=== PATIENT | female | born 1985 | race African-American/Black ===

== ENCOUNTER → 2016-04-26 | Outpatient (REF) | payer OTHER ==
[2016-04-26 14:50] LABS: CONTROL LINE HPYORI INT CTR LINE PRESENT
== END ==
LOC: M LAB REF 13:28
PROVIDERS: ATTEND Internal Medicine Medical Oncology
DX: D69.3 Immune thrombocytopenic purpura (principal)

== ENCOUNTER → 2016-05-08 | Outpatient (REF) | payer OTHER ==
[2016-05-08 19:25] LABS: PERCENT SATURATION 6.6 % (13.2-37.4)
[2016-05-08 21:18] LABS: REASON FOR REVIEW COMPREHENSIVE REVIEW
== END ==
LOC: M LAB REF 17:07
PROVIDERS: ATTEND Internal Medicine Medical Oncology
DX: D69.3 Immune thrombocytopenic purpura (principal)

== ENCOUNTER → 2016-05-08 | Outpatient (CLI) | payer OTHER ==
--- NOTE | 2016-05-08 10:18 | REP ---
LEFT UPPER QUADRANT SONOGRAPHY: HISTORY: Thrombocytopenia. History of idiopathic thrombocytopenia purpura. No comparison studies. FINDINGS: Scanning through the left upper quadrant of the abdomen demonstrates a normal size spleen with dimensions of 9.8 x 3.8 x 11.2 cm. Spleen is homogeneous. No focal splenic lesion is seen. There is no evidence of ascites in the left upper quadrant. The left kidney is unremarkable. Its dimensions are 11.6 x 5.4 x 5.4 cm. No hydronephrosis, cyst mass or calculus is seen. IMPRESSION: Negative left upper quadrant sonography. Signed by Jairon Allen MD 05/08/2016 12:31 P
== END ==
LOC: EDUNIT# 05-03 09:00 → M RAD 08:32
PROVIDERS: ATTEND Internal Medicine Medical Oncology
DX: D69.6 Thrombocytopenia, unspecified (principal)

== ENCOUNTER → 2016-09-26 | Day surgery (SDC) | payer OTHER ==
[~2016-09-26] VITALS: Ht 157.5 cm; Wt 108.9 kg
[~2016-09-26] MED LIST: HYDROmorphone HCL 1 MG/ML SYRINGE (J1170) As Ordered ONE; IRON50TA PO; KETOROLAC 30 MG/ML VIAL (J1885) As Ordered ONE; KETOROLAC 30 MG/ML VIAL (J1885) IV PRN; LIDOCAINE 2% INJ 100 MG/5 ML SDV (FOR ANES.) As Ordered ONE; LR 1,000 ML IV SCH; MIDAZOLAM INJ 2 MG/2 ML VIAL (J2250) As Ordered ONE; ONDANSETRON 4MG/2ML VIAL (J2405) As Ordered ONE; ONDANSETRON 4MG/2ML VIAL (J2405) IV PRN; PERCOCET 5MG/325MG TAB As Ordered ONE; PERCOCET 5MG/325MG TAB PO PRN; PROPOFOL 200 MG/20 ML VIAL As Ordered ONE; dexameTHASONE 4 MG/ML 1ML VIAL (J1100) As Ordered ONE; fentaNYL 100 MCG/2 ML INJECTION (J3010) As Ordered ONE; fentaNYL 100 MCG/2 ML INJECTION (J3010) IV PRN
[2016-09-26 07:02] LABS: MEAN CORPUSCULAR HEMOGLOBIN 22.6 pg (27.0-33.0); MEAN CORPUSCULAR HGB CONC 31.1 g/dl (32.0-36.5); MEAN CORPUSCULAR VOLUME 72.8 fl (80.0-96.0); RED CELL DISTRIBUTION WIDTH 16.6 % (11.5-14.5); WHITE BLOOD COUNT 7.2 K/mm3 (4.0-10.0)
[2016-09-26 07:08] LABS: INR 1.08
[2016-09-26 07:35] LABS: ANION GAP 6 MEQ/L (8-16); BLOOD UREA NITROGEN 11 MG/DL (7-18); CALCIUM LEVEL 8.5 MG/DL (8.5-10.1); CARBON DIOXIDE LEVEL 27 MEQ/L (21-32); CHLORIDE LEVEL 107 MEQ/L (98-107); CREATININE FOR GFR 0.62 MG/DL (0.55-1.02); GLOMERULAR FILTRATION RATE > 60.0 (>60); GLUCOSE, FASTING 112 MG/DL (70-105); HCG, SERUM QUANTITATIVE < 1.0 MIU/ML; SODIUM LEVEL 140 MEQ/L (136-145)
[2016-09-26] MEDS: HYDROmorphone HCL 1 MG/ML SYRINGE (J1170) IV PRN ×2 (08:41→08:46)
[2016-09-26 11:25] VITALS: BP 123/62
--- NOTE | 2016-10-02 18:27 | RO ---
DATE OF PROCEDURE: 09/26/2016 PREOPERATIVE DIAGNOSIS: Abnormal uterine bleeding, immune thrombocytopenic purpura. Query fibroid fundal uterus. POSTOPERATIVE DIAGNOSIS: Abnormal uterine bleeding, immune thrombocytopenic purpura. No fundal fibroid. OPERATION PROPOSED: Hysteroscopy, dilation and curettage (D and C), NovaSure ablation, possible MyoSure resection of myoma. OPERATION PERFORMED: Hysteroscopy, dilation and curettage (D and C), NovaSure ablation. SURGEON: Dr. Olayinka Salinas HYPERION ESSBASE DEVELOPER:Dr. Tavares ANESTHESIA: General. ESTIMATED BLOOD LOSS: Less than 20 mL. DESCRIPTION OF PROCEDURE: Under adequate anesthesia, prepped and draped in lithotomy position, bladder drained for 150 mL of clear urine. After time-out, sequentials on board, no need for antibiotics, acetaminophen suppository 1300 mg per rectum. Weighted speculum in vagina, a single-tooth tenaculum on the anterior lip of the cervix, uterus sounded to a depth of 6-1/2 cm. Hysteroscopic evaluation showed no evidence of fibroid in the uterus, a lot of debris and a lot of endometrial thickening but no evidence to suggest a fibroid. No distortion of the cavity as well. Curettage of the cavity was done, then the NovaSure ablation instrument was placed in the uterine cavity with a cavity length of 6 and a width of 4.3, a setting of 142 power and NovaSure ablation was performed for 42 seconds. With that done, we reintroduced the hysteroscope, evaluated the cavity , showed full ablation of the entire cavity to both os. We used 150 mL in, 150 mL out. All instruments were removed. Instrument and pad count correct, and the patient was taken back to recovery in good condition. Copy To: Blank KHAN
== END | disposition home or self-care (01) ==
LOC: M SDC 06:11
PROVIDERS: ATTEND Obstetrics & Gynecology
DX: N93.8 Other specified abnormal uterine and vaginal bleeding (principal); D69.3 Immune thrombocytopenic purpura
CPT/HCPCS: 36415; 58563; 80048; 84702; 85027; 85610; 86850; 86870; 86900; 86901; 88305; A4649; J1100; J1170; J1885; J2250; J2405; J3010